=== PATIENT | male | born 1940 | race Caucasian/White ===

== ENCOUNTER 2017-12-25 17:20 | Inpatient (IN) | payer MEDICARE, OTHER ==
[~2017-12-25] VITALS: Ht 182.9 cm; Wt 84.1 kg
[2017-12-25 18:31] LABS: BASOPHILS PERCENT AUTO 0 % (0-2); EOSINOPHILS PERCENT AUTO 0 % (0-6); Hematocrit 37.6 % (37.0-53.0); Hemoglobin 12.2 g/dL (13.5-17.5); IMMATURE GRAN ABSOLUTE AUTO 0.05 K/mm3 (0.00-0.10); IMMATURE GRAN PERCENT AUTO 1 % (0-1); LYMPHOCYTES ABSOLUTE AUTO 0.61 K/mm3 (0.84-5.20); LYMPHOCYTES PERCENT AUTO 8 % (21-46); MONOCYTES PERCENT AUTO 7 % (4-13); Mean Corpuscular HGB Conc 32.4 g/dL (31.5-36.5); Mean Corpuscular Volume 90 fL (80-100); Mean Platelet Volume 9.9 fL (9.1-12.4); NEUTROPHILS ABSOLUTE AUTO 6.17 K/mm3 (1.96-9.15); NEUTROPHILS PERCENT AUTO 84 % (41-73); Platelet Count 211 K/mm3 (150-400); RDW Coefficient Variation 13.5 % (11.7-14.2); RDW Standard Deviation 44.5 fL (35.1-46.3); White Blood Cell Count 7.33 K/mm3 (4.00-11.30)
[2017-12-25 18:40] LABS: International Normalized Ratio 1.09; Prothrombin Time Results 11.4 Sec (9.7-11.5)
[2017-12-25 18:52] LABS: Alanine Aminotransfer (ALT/SGP 24 U/L (12-78); Albumin/Globulin Ratio 0.8 (0.8-1.8); Alk Phos 61 U/L (50-136); Anion Gap 7 mmol/L (6-16); Aspartate Aminotrans (AST/SGOT 25 U/L (12-37); Bilirubin, Total 0.4 mg/dL (0.1-1.0); Blood Urea Nitrogen 18 mg/dL (8-24); Bun/Creatinine Ratio 17.1 (12.0-20.0); CO2, Blood 29 mmol/L (21-32); Calcium, Blood 8.5 mg/dL (8.5-10.1); Chloride, Blood 105 mmol/L (98-108); Creatinine, Blood 1.05 mg/dL (0.60-1.20); Globulin, Blood 3.7 g/dL (2.2-4.0); Glomerular Filtration Rate >60 (60-); Glucose, Blood 114 mg/dL (70-99); Magnesium, Blood 2.2 mg/dL (1.6-2.4); Potassium, Blood 3.2 mmol/L (3.5-5.5); Sodium, Blood 141 mmol/L (136-145); Total Protein, Blood 6.7 g/dL (6.4-8.2); Troponin I 0.043 ng/mL (0.000-0.040)
[2017-12-25 19:50] LABS: Source, Urine Clean Catch
[2017-12-25 19:56] LABS: Appearance, Urine Clear (Clear); Bilirubin, Urine Neg (Neg); Blood, Urine Neg (Neg); Color, Urine Yellow (P-Yellow); Glucose Qualitative, Urine Neg (Neg); Ketones, Urine Neg (Neg); Leukocyte Esterase, Urine Neg (Neg); Nitrite, Urine Neg (Neg); Protein, Urine Neg (Neg); Urobilinogen, Urine NORM (Normal)
[2017-12-25] MEDS ORDERED: ACET325 PO (20:07)
[2017-12-25] MEDS ORDERED: Aspir 8181 MG PO (20:09)
[2017-12-25] MEDS ORDERED: ATOR10 PO (20:09)
[2017-12-25] MEDS ORDERED: CYCL10 PO (20:10)
[2017-12-25] MEDS ORDERED: BUDE6HFA INH (20:10)
[2017-12-25] MEDS ORDERED: SYNTHROID0.2 MG PO (20:11)
[2017-12-25] MEDS ORDERED: LISI20 PO (20:11)
[2017-12-25] MEDS ORDERED: CLARITIN10 MG PO (20:12)
[2017-12-25] MEDS ORDERED: Terazosin HCl10 MG PO (20:19)
[2017-12-25] MEDS ORDERED: METO50ER PO (20:20)
[2017-12-25] MEDS ORDERED: Calcium + Vita1 EACH PO (21:18)
[2017-12-26 05:54] LABS: Anion Gap 5 mmol/L (6-16); Blood Urea Nitrogen 16 mg/dL (8-24); Bun/Creatinine Ratio 17.3 (12.0-20.0); CO2, Blood 33 mmol/L (21-32); Chloride, Blood 103 mmol/L (98-108); Creatinine, Blood 0.93 mg/dL (0.60-1.20); Glomerular Filtration Rate >60 (60-); Glucose, Blood 93 mg/dL (70-99); Potassium, Blood 3.3 mmol/L (3.5-5.5); Sodium, Blood 141 mmol/L (136-145)
[2017-12-27 08:56] LABS: Albumin, Blood 2.9 g/dL (3.4-5.0); Anion Gap 7 mmol/L (6-16); Blood Urea Nitrogen 20 mg/dL (8-24); Bun/Creatinine Ratio 21.2 (12.0-20.0); CO2, Blood 32 mmol/L (21-32); Chloride, Blood 101 mmol/L (98-108); Creatinine, Blood 0.94 mg/dL (0.60-1.20); Glomerular Filtration Rate >60 (60-); Glucose, Blood 85 mg/dL (70-99); Phosphorus, Blood 3.1 mg/dL (2.5-4.9); Potassium, Blood 3.2 mmol/L (3.5-5.5); Sodium, Blood 140 mmol/L (136-145)
[2017-12-28 05:49] LABS: Anion Gap 6 mmol/L (6-16); Blood Urea Nitrogen 23 mg/dL (8-24); Bun/Creatinine Ratio 20.7 (12.0-20.0); CO2, Blood 33 mmol/L (21-32); Calcium, Blood 7.8 mg/dL (8.5-10.1); Chloride, Blood 99 mmol/L (98-108); Creatinine, Blood 1.11 mg/dL (0.60-1.20); Glomerular Filtration Rate >60 (60-); Glucose, Blood 96 mg/dL (70-99); Potassium, Blood 3.2 mmol/L (3.5-5.5); Sodium, Blood 138 mmol/L (136-145)
[2017-12-28] MEDS ORDERED: METO50 PO (11:54)
[2017-12-28] MEDS ORDERED: POTCHL20ER PO (11:54)
[2017-12-28] MEDS ORDERED: XARELTO20 MG PO (11:55)
[2017-12-28] MEDS ORDERED: TRAM50 PO (11:56)
[2017-12-28] MEDS ORDERED: TIOT18 INH (11:57)
[2017-12-29 07:39] LABS: Albumin, Blood 2.5 g/dL (3.4-5.0); Anion Gap 7 mmol/L (6-16); Blood Urea Nitrogen 30 mg/dL (8-24); Bun/Creatinine Ratio 21.9 (12.0-20.0); CO2, Blood 29 mmol/L (21-32); Calcium, Blood 7.8 mg/dL (8.5-10.1); Chloride, Blood 102 mmol/L (98-108); Creatinine, Blood 1.37 mg/dL (0.60-1.20); Glomerular Filtration Rate 53 (60-); Glucose, Blood 85 mg/dL (70-99); Phosphorus, Blood 2.9 mg/dL (2.5-4.9); Potassium, Blood 3.8 mmol/L (3.5-5.5); Sodium, Blood 138 mmol/L (136-145)
[2017-12-30 05:31] LABS: Anion Gap 5 mmol/L (6-16); Blood Urea Nitrogen 29 mg/dL (8-24); Bun/Creatinine Ratio 24.8 (12.0-20.0); CO2, Blood 30 mmol/L (21-32); Calcium, Blood 8.5 mg/dL (8.5-10.1); Chloride, Blood 105 mmol/L (98-108); Creatinine, Blood 1.17 mg/dL (0.60-1.20); Glomerular Filtration Rate >60 (60-); Glucose, Blood 97 mg/dL (70-99); Potassium, Blood 3.8 mmol/L (3.5-5.5); Sodium, Blood 140 mmol/L (136-145)
[2017-12-30] MEDS ORDERED: ASPI325 PO (15:33)
[2017-12-30] MEDS ORDERED: ALBU2.5V5 NEB (15:35)
[2017-12-30] MEDS ORDERED: FURO40 PO (15:37)
[2017-12-31 05:28] LABS: Albumin, Blood 2.6 g/dL (3.4-5.0); Anion Gap 7 mmol/L (6-16); Blood Urea Nitrogen 27 mg/dL (8-24); CO2, Blood 29 mmol/L (21-32); Calcium, Blood 8.2 mg/dL (8.5-10.1); Chloride, Blood 106 mmol/L (98-108); Creatinine, Blood 1.08 mg/dL (0.60-1.20); Glomerular Filtration Rate >60 (60-); Glucose, Blood 85 mg/dL (70-99); Potassium, Blood 4.1 mmol/L (3.5-5.5); Sodium, Blood 142 mmol/L (136-145)
[2017-12-31] MEDS ORDERED: METO50ER PO (12:46)
[2017-12-31] MEDS ORDERED: ASPI81CH PO (12:47)
== END 2017-12-31 17:53 | disposition home health service (06) | DRG 291 ==
LOC: ER 17:20 → PCU 20:18 → MEDS 12-27 15:35 → ENPENDDIS 12-30 10:00 → MEDS 12-31 17:53
PROVIDERS: Emergency Medicine; Hospitalist; Internal Medicine
DX: I11.0 Hypertensive heart disease with heart failure (principal); J96.01 Acute respiratory failure with hypoxia; N17.9 Acute kidney failure, unspecified; F03.91 Unspecified dementia, unspecified severity, with behavioral disturbance; I50.31 Acute diastolic (congestive) heart failure; Z79.01 Long term (current) use of anticoagulants; K70.10 Alcoholic hepatitis without ascites; F03.90 Unspecified dementia, unspecified severity, without behavioral disturbance, psychotic disturbance, mood disturbance, and anxiety; I48.0 Paroxysmal atrial fibrillation; J44.9 Chronic obstructive pulmonary disease, unspecified
CPT/HCPCS: 36415; 71046; 80048; 80053; 80069; 81003; 82947; 83735; 83880; 84145; 84443; 84484; 85025; 85610; 85730; 93005; 93010; 93306; 94640; 94760; 94761; 96365; 96375; 97162; 97530; 99285; G8978; G8979; G8980; J0696; J1630; J1940; J2060; J3480

== ENCOUNTER 2021-03-27 09:17 | Emergency (ER) | payer OTHER ==
[~2021-03-27] VITALS: Ht 182.9 cm; Wt 72.6 kg
[~2021-03-27 09:17] MED LIST: ACET325 PO; ALBU2.5V5 NEB; ASPI325 PO; ASPI81CH PO; ATOR10 PO; Aspir 8181 MG PO; BUDE6HFA INH; CLARITIN10 MG PO; CYCL10 PO; Calcium + Vita1 EACH PO; FURO40 PO; LISI20 PO; METO50 PO; METO50ER PO; POTCHL20ER PO; SYNTHROID0.2 MG PO; TIOT18 INH; TRAM50 PO; Terazosin HCl10 MG PO; XARELTO20 MG PO
== END 2021-03-27 14:30 | disposition home or self-care (01) ==
LOC: ER 09:17
DX: S60.222A Contusion of left hand, initial encounter (principal); Z79.899 Other long term (current) drug therapy; Z79.82 Long term (current) use of aspirin; Z87.891 Personal history of nicotine dependence; X58.XXXA Exposure to other specified factors, initial encounter
CPT/HCPCS: 73100; 99284-25

== ENCOUNTER 2021-07-11 11:59 | Emergency (ER) | payer OTHER ==
[~2021-07-11] VITALS: Ht 182.9 cm; Wt 65.8 kg
[2021-07-11] MEDS ORDERED: HYDR1TAB94 PO (14:13)
[2021-07-11] MEDS ORDERED: LIDO700A20 TOP (14:18)
[2021-07-17] MEDS ORDERED: LIDO700A20 TOP (13:10)
[2021-07-17] MEDS ORDERED: Norco 5-325 Ta1 EACH PO (13:10)
== END 2021-07-11 14:59 | disposition home or self-care (01) ==
LOC: ER 11:59
DX: S20.211A Contusion of right front wall of thorax, initial encounter (principal); J44.9 Chronic obstructive pulmonary disease, unspecified; F03.90 Unspecified dementia, unspecified severity, without behavioral disturbance, psychotic disturbance, mood disturbance, and anxiety; Z79.82 Long term (current) use of aspirin; Z79.899 Other long term (current) drug therapy; Z87.891 Personal history of nicotine dependence; W06.XXXA Fall from bed, initial encounter
CPT/HCPCS: 71101; 93005; 93010; 94640; 99284-25

== ENCOUNTER 2021-08-14 14:49 | Inpatient (IN) | payer OTHER ==
[~2021-08-14] VITALS: Ht 180.3 cm; Wt 63.5 kg
[~2021-08-14 14:49] MED LIST changes: +HYDR1TAB94 PO; +LIDO700A20 TOP; +Norco 5-325 Ta1 EACH PO
--- NOTE | 2021-08-14 21:19 | NUR ---
Recieved patient from ED to room 217. Pt A/Ox1, VSS. Belongings at bedside. Tele placed on pt per order. Mendez soon to be placed per order. 0.9 infusing per order. Bed locked, alarm on and in lowest position. WCTM.
[2021-08-14 21:26] LABS: Hematocrit 36.1 % (37.0-53.0); Hemoglobin 11.7 g/dL (13.5-17.5); Mean Corpuscular HGB 27.1 pg (26.0-34.0); Mean Corpuscular HGB Conc 32.4 g/dL (31.5-36.5); Mean Corpuscular Volume 84 fL (80-100); Mean Platelet Volume 9.8 fL (9.1-12.4); Platelet Count 216 K/mm3 (150-400); RDW Standard Deviation 52.4 fL (35.1-46.3); Red Blood Cell Count 4.32 M/mm3 (4.30-5.90); White Blood Cell Count 7.11 K/mm3 (4.00-11.30)
[2021-08-14 21:58] LABS: Source, Urine Catheter
[2021-08-14 22:01] LABS: Bilirubin, Urine Neg (Neg); Blood, Urine 3+ (Neg); Glucose Qualitative, Urine Neg (Neg); Ketones, Urine Neg (Neg); Leukocyte Esterase, Urine Neg (Neg); Nitrite, Urine Neg (Neg); Protein, Urine Neg (Neg); Specific Gravity, Urine 1.015 (1.003-1.022); Urobilinogen, Urine NORM (Normal)
[2021-08-14] MEDS ORDERED: EUTHYROX175 MCG PO (22:01)
[2021-08-14] MEDS ORDERED: ACET500 PO (22:03)
[2021-08-14] MEDS ORDERED: DICLOFENAC SOD100 GM TOP (22:05)
[2021-08-14] MEDS ORDERED: DOCU100 PO (22:05)
[2021-08-14] MEDS ORDERED: DONE10 PO (22:07)
[2021-08-14] MEDS ORDERED: DONEPEZIL HCL10 MG PO (22:07)
[2021-08-14 22:08] LABS: Alanine Aminotransfer (ALT/SGP 16 U/L (12-78); Albumin, Blood 2.8 g/dL (3.4-5.0); Albumin/Globulin Ratio 0.7 (0.8-1.8); Alk Phos 93 U/L (50-136); Anion Gap 7 mmol/L (6-16); Aspartate Aminotrans (AST/SGOT 17 U/L (12-37); Bilirubin, Total 0.5 mg/dL (0.1-1.0); Blood Urea Nitrogen 21 mg/dL (8-24); Bun/Creatinine Ratio 22.6 (12.0-20.0); CO2, Blood 32 mmol/L (21-32); Calcium, Blood 8.2 mg/dL (8.5-10.1); Chloride, Blood 101 mmol/L (98-108); Creatinine, Blood 0.93 mg/dL (0.60-1.20); Globulin, Blood 3.9 g/dL (2.2-4.0); Glomerular Filtration Rate >60 (60-); Glucose, Blood 94 mg/dL (70-99); Potassium, Blood 3.5 mmol/L (3.5-5.5); Sodium, Blood 140 mmol/L (136-145); Total Protein, Blood 6.7 g/dL (6.4-8.2)
[2021-08-14] MEDS ORDERED: TAMS.4ER PO (22:11)
[2021-08-14] MEDS ORDERED: XARELTO20 MG PO (22:15)
[2021-08-14] MEDS ORDERED: ATOR10 PO (22:16)
[2021-08-14 22:18] LABS: Appearance, Urine Clear (Clear); Color, Urine Yellow (P-Yellow)
[2021-08-14] MEDS ORDERED: SENN187 PO (22:18)
[2021-08-14] MEDS ORDERED: ZINC OXIDE57 GM TOP (22:19)
[2021-08-14 22:20] LABS: Amorphous Light (0-Heavy); Bacteria Rare /hpf; Squamous Epithelial Cells Not Seen /hpf (Few); Transitional Epithelial Cells Few /hpf (0-Rare); White Blood Cells, Urine Rare /hpf (0-5)
[2021-08-14] MEDS ORDERED: LOPERAMIDE2 M8 PO (22:23)
--- NOTE | 2021-08-14 23:16 | NUR ---
[facility] CALLED. STATES THE PATIENT HAD RECIEVED FLU VACCINE THIS YEAR. MED HELD. ALSO STATES LAST DOSE OF XARELTO WAS TODAY 08/14/21 AT 1200. WILL PASS ONTO DAY RN. DR. DAMICO MADE AWARE THAT MED REQ IS COMPLETE STATES SHE WILL ORDER ACCORDINGLY. ALSO DR. DAMICO AWARE THAT DNR PAPERWORK WAS RECIEVED FROM [facility]. STATES SHE WILL CHANGE THE CODE STATUS. TM.
--- NOTE | 2021-08-15 01:15 | NUR ---
PT BRADYCARDIC WHILE SLEEPING PER STARCH TREATING ASSISTANT. PT AWOKEN, VSS. HR NOW 61 BPM.
[2021-08-15 04:28] LABS: Hematocrit 33.7 % (37.0-53.0); Mean Corpuscular HGB 27.4 pg (26.0-34.0); Mean Corpuscular HGB Conc 32.6 g/dL (31.5-36.5); Mean Corpuscular Volume 84 fL (80-100); Mean Platelet Volume 9.8 fL (9.1-12.4); Platelet Count 214 K/mm3 (150-400); RDW Coefficient Variation 16.9 % (11.7-14.2); RDW Standard Deviation 52.1 fL (35.1-46.3); Red Blood Cell Count 4.02 M/mm3 (4.30-5.90); White Blood Cell Count 6.75 K/mm3 (4.00-11.30)
[2021-08-15 05:40] LABS: Anion Gap 8 mmol/L (6-16); Blood Urea Nitrogen 18 mg/dL (8-24); Bun/Creatinine Ratio 20.2 (12.0-20.0); CO2, Blood 30 mmol/L (21-32); Chloride, Blood 102 mmol/L (98-108); Creatinine, Blood 0.89 mg/dL (0.60-1.20); Glomerular Filtration Rate >60 (60-); Glucose, Blood 88 mg/dL (70-99); Potassium, Blood 3.3 mmol/L (3.5-5.5); Sodium, Blood 140 mmol/L (136-145)
[2021-08-15 08:41] LABS: Influenza A, PCR NEGATIVE (NEGATIVE); Influenza B, PCR NEGATIVE (NEGATIVE); Resp Syncytial Virus, PCR NEGATIVE (NEGATIVE); SARS-Cov-2 (COVID-19) PCR, MMC NEGATIVE (NEGATIVE)
--- NOTE | 2021-08-15 13:29 | NUR ---
08/15/21 1329 Savana Teixeira ANCEF 2 GM IV GIVEN BY DR RUIZ AT 1310. DR RUIZ PULLED THE MEDS FROM HIS PYXIS, MIXED IT, AND ADMINISTERED IT.
--- NOTE | 2021-08-15 14:43 | NUR ---
COPY OF PATIENTS GUARDIANSHIIP IN CHART
--- NOTE | 2021-08-15 16:11 | NUR ---
SHIFT SUMMARY S/P R HIP REPAIR. PT AWAKENS TO VERBAL STIMIULI BUT BECOMES VERY AGRESSIVE WITH MALE CAREGIVERS. AND REFUSES CARE. LOGAN PATENT AND DRAINING. DRESSINGS CDI. AQUACELS CDI TO R HIP. PT REPORTS SENSATION IN RLE BY TELLING THIS RN TO KNOCK IT OFF AND QUIT TOUCHING HIS FOOT.
--- NOTE | 2021-08-16 05:05 | NUR ---
SHIFT SUMMARY POD1 R HIP GAMMA NAIL W/ DR. ANDRADE. PT ALERT, ORIENTED TO SELF ONLY. HX DEMENTIA. ATTEMPTED TO REPOSITIONED PT EVERY 2 HOURS, BUT HAS BEEN REFUSING. HE GETS AGITATED AND YELLS STATING "DON'T TOUCH ME!" WHEN NOT REPOSITIONED HE CAN BE PLEASANT AND CALM. SLEPT AT THE BEGINNING OF THE SHIFT, FED PT WITH SNACKS AND ENC ORAL HYDRATION AT 2200. IV ABX GIVEN. PAIN MANAGED WITH NORCO. BP MILDLY HYPOTENSIVE. ENC ORAL FLUIDS. PT LIKED LEMONADE. BED IN LOW POSITION. CALL LIGHT WITHIN REACH. WILL CONTINUE TO MONITOR PT. AND WILL PROVIDE REPORT TO ONCOMING NURSE.
[2021-08-16 06:14] LABS: BASOPHILS ABSOLUTE AUTO 0.01 K/mm3 (0.00-0.23); BASOPHILS PERCENT AUTO 0 % (0-2); EOSINOPHILS PERCENT AUTO 0 % (0-6); Hematocrit 33.7 % (37.0-53.0); Hemoglobin 10.6 g/dL (13.5-17.5); IMMATURE GRAN ABSOLUTE AUTO 0.02 K/mm3 (0.00-0.10); IMMATURE GRAN PERCENT AUTO 0 % (0-1); LYMPHOCYTES PERCENT AUTO 12 % (21-46); MONOCYTES ABSOLUTE AUTO 0.65 K/mm3 (0.16-1.47); MONOCYTES PERCENT AUTO 10 % (4-13); Mean Corpuscular HGB 26.8 pg (26.0-34.0); Mean Corpuscular HGB Conc 31.5 g/dL (31.5-36.5); Mean Corpuscular Volume 85 fL (80-100); Mean Platelet Volume 10.3 fL (9.1-12.4); NEUTROPHILS ABSOLUTE AUTO 4.99 K/mm3 (1.96-9.15); NEUTROPHILS PERCENT AUTO 77 % (41-73); Platelet Count 249 K/mm3 (150-400); RDW Standard Deviation 53.2 fL (35.1-46.3); Red Blood Cell Count 3.95 M/mm3 (4.30-5.90); White Blood Cell Count 6.47 K/mm3 (4.00-11.30)
[2021-08-16 06:52] LABS: Alanine Aminotransfer (ALT/SGP 14 U/L (12-78); Albumin, Blood 2.3 g/dL (3.4-5.0); Albumin/Globulin Ratio 0.5 (0.8-1.8); Alk Phos 79 U/L (50-136); Anion Gap 9 mmol/L (6-16); Aspartate Aminotrans (AST/SGOT 13 U/L (12-37); Bilirubin, Total 0.3 mg/dL (0.1-1.0); Blood Urea Nitrogen 20 mg/dL (8-24); CO2, Blood 27 mmol/L (21-32); Calcium, Blood 7.9 mg/dL (8.5-10.1); Chloride, Blood 102 mmol/L (98-108); Creatinine, Blood 1.05 mg/dL (0.60-1.20); Globulin, Blood 4.4 g/dL (2.2-4.0); Glomerular Filtration Rate >60 (60-); Glucose, Blood 110 mg/dL (70-99); Potassium, Blood 3.8 mmol/L (3.5-5.5); Sodium, Blood 138 mmol/L (136-145); Total Protein, Blood 6.7 g/dL (6.4-8.2)
--- NOTE | 2021-08-16 18:29 | NUR ---
SHIFT SUMMARY PT HAS NOT BEEN ABLE TO TOLERATE ANY MOVEMENT TODAY. FEARFUL & PAINFUL, BUT REFUSES PAIN MEDICATION THIS AFTERNOON. ONLY ORIENTED TO SELF, BUT PLEASANT. VERY ONE[place]. EATING & DRINKING WELL.
--- NOTE | 2021-08-17 04:31 | NUR ---
SHIFT SUMMARY PT ALERT BUT ONLY ORIENTED TO SELF, INTERMITTENTLY REFUSES CARE, C/O SORENESS TO R KNEE BUT REFUSES PAIN MEDS, WAS WILLING TO ACCEPT PLACING ICE PACKS TO IT, REFUSED TO LET THIS RN INSPECT DRESSINGS BUT PER REPORTS HE ALSO REFUSED SOME CARE DURING DAY SHIFT. NO ACUTE EVENTS THIS SHIFT, CALL LIGHT IN REACH THOUGH HE USUALLY JUST CALLS OUT/YELLS OUT, WILL CTM AND REPORT TO DAY RN.
--- NOTE | 2021-08-17 16:47 | NUR ---
SHIFT SUMMARY PT IS POD# 2 FROM R HIP REPAIR. PT IS ORIENTED TO HIMSELF. PAIN WAS MANAGED WITH TYLENOL THIS AM. PAIN APPEARED TO INCREASE THIS AFTERNOON AND 6 HOURS HAD NOT PASSED SINCE FIRST DOSE. PT WAS GIVEN NORCO, PT HAS BEEN SLEEPING SINCE NORCO WAS GIVEN. RECOMMEND AVOIDING/REDUCING NARCOTICS FOR FUTURE DOSES. PT WAS A 2 PERSON ASSIST TO GET TO THE CHAIR. HE HAS DIFFICULTY MAINTAINING WEIGHTBEARING STATUS. PT IS TOLERATING HIS DIET AND HAS ATE 90-100% OF MEALS. PLAN FOR RETURN TO [facility] WHEN PT IS BETTER ABLE TO MOBILIZE. BP SLIGHTLY LOW THIS AFTERNOON BUT HAS IMPROVED. VSS AT THIS TIME. WILL MONITOR UNTIL REPORT TO ANGELES RN.
--- NOTE | 2021-08-17 16:52 | NUR ---
Received referral from nurse family day care worker (Samina Morgan) on 08/16/2021. Patient is to discharge on either 08/17/2021 or 08/18/2021 with orders for home health and elected [facility]. Attempted to meet with patient today- 08/18/2021 to further discuss the above. However, per bedside BEHAVIORAL MEDICAL DIRECTOR (Eboni Ta), patient is not able to meaningfully participate in the conversation due to his mental status and being hard of hearing. Contacted patient's facility- [facility] (Med Tech- Trisha?) to further discuss the above. Patient's facility is agreeable to the above. Discussed homebound status definition with facility med tech. Facility med tech verbalized understanding. Discussed what home health is vs what it is not (in home caregivers/housekeeping). Facility med tech verbalized understanding. Discussed the next steps in the process of an initial assessment to determine frequency of visits. Again facility med tech verbalized understanding. Offered a chance for facility med tech to ask questions regarding the above of which there were none. At this time patient has no discharge orders entered. Will continue to monitor and follow for discharge. Greer Upton Referral Liaison
--- NOTE | 2021-08-18 08:03 | NUR ---
SUMMARY PER REPORT,PT IS TO BE 1 ASSIST OOB BEFORE HE CAN RETURN TO HIS PRIOR LIVING SITUATION.ORDERED FOR [facility]B RLE AT THIS TIME.
[2021-08-18] MEDS ORDERED: VITAMIN D31000 UNI1 PO (13:43)
--- NOTE | 2021-08-18 16:21 | NUR ---
SHIFT SUMMARY PT POD #3 FOR R HIP GAMMA NAILING. PT IS A/O X1/2 AND CAN BE IRRITABLE AT TIMES. PT DOES NOT C/O PAIN AND IT IS WELL CONTROLLED WITH TYLENOL THIS SHIFT. AQUACEL DRESSING TO R HIP, DRESSING CHANGED THIS SHIFT AND CDI. PT WORKED WITH PHYSICAL THERAPY AND WAS ABLE TO GET UP WITH A ONE ASSIST. PT DOES WELL NOT PUTTING WEIGHT ON R LEG. VSS. REPORT CALLED TO [facility]. PT [facility].
== END 2021-08-18 15:55 | disposition home health service (06) | DRG 481 ==
LOC: ER 14:49 → SURS 18:19
PROVIDERS: Internal Medicine; Orthopaedic Surgery; ADMIT Internal Medicine
PROC: 0QS636Z Reposition Right Upper Femur with Intramedullary Internal Fixation Device, Percutaneous Approach (ICD-10-PCS; principal; 2021-08-15 12:30)
DX: S72.144A Nondisplaced intertrochanteric fracture of right femur, initial encounter for closed fracture (principal); F03.91 Unspecified dementia, unspecified severity, with behavioral disturbance; I50.32 Chronic diastolic (congestive) heart failure; S72.044A Nondisplaced fracture of base of neck of right femur, initial encounter for closed fracture; Z20.822 Contact with and (suspected) exposure to COVID-19; Z66 Do not resuscitate; E11.9 Type 2 diabetes mellitus without complications; I48.0 Paroxysmal atrial fibrillation; E86.0 Dehydration; F17.200 Nicotine dependence, unspecified, uncomplicated; E03.9 Hypothyroidism, unspecified; E78.5 Hyperlipidemia, unspecified; J44.9 Chronic obstructive pulmonary disease, unspecified; H90.5 Unspecified sensorineural hearing loss; Z86.711 Personal history of pulmonary embolism; Z98.890 Other specified postprocedural states; Z79.01 Long term (current) use of anticoagulants; Z79.82 Long term (current) use of aspirin; Z79.899 Other long term (current) drug therapy; W18.39XA Other fall on same level, initial encounter
CPT/HCPCS: 0241U; 36415; 71045; 72192; 73502; 73552; 76377; 80048; 80053; 81001; 82607; 82746; 82947; 84443; 85025; 85027; 86592; 93005; 93010; 94760; 96374; 97110; 97162; 97166; 97530; 99285-25; A9270; C1713; J0690; J1100; J1630; J2370; J2405; J2704; J3010; J3480; J7030; J7040

== ENCOUNTER 2022-01-15 10:06 | Emergency (ER) | payer OTHER ==
[~2022-01-15] VITALS: Ht 180.3 cm; Wt 72.6 kg
[~2022-01-15 10:06] MED LIST changes: +ACET500 PO; +DICLOFENAC SOD100 GM TOP; +DOCU100 PO; +DONE10 PO; +DONEPEZIL HCL10 MG PO; +EUTHYROX175 MCG PO; +LOPERAMIDE2 M8 PO; +SENN187 PO; +TAMS.4ER PO; +VITAMIN D31000 UNI1 PO; +ZINC OXIDE57 GM TOP
[2022-01-15 10:55] LABS: BASOPHILS ABSOLUTE AUTO 0.02 K/mm3 (0.00-0.23); BASOPHILS PERCENT AUTO 0 % (0-2); EOSINOPHILS PERCENT AUTO 0 % (0-6); Hematocrit 34.1 % (37.0-53.0); Hemoglobin 10.4 g/dL (13.5-17.5); IMMATURE GRAN ABSOLUTE AUTO 0.02 K/mm3 (0.00-0.10); IMMATURE GRAN PERCENT AUTO 0 % (0-1); LYMPHOCYTES ABSOLUTE AUTO 1.45 K/mm3 (0.84-5.20); LYMPHOCYTES PERCENT AUTO 22 % (21-46); MONOCYTES ABSOLUTE AUTO 0.66 K/mm3 (0.16-1.47); MONOCYTES PERCENT AUTO 10 % (4-13); Mean Corpuscular HGB 23.9 pg (26.0-34.0); Mean Corpuscular HGB Conc 30.5 g/dL (31.5-36.5); Mean Corpuscular Volume 78 fL (80-100); NEUTROPHILS ABSOLUTE AUTO 4.56 K/mm3 (1.96-9.15); NEUTROPHILS PERCENT AUTO 68 % (41-73); Platelet Count 228 K/mm3 (150-400); RDW Coefficient Variation 17.3 % (11.7-14.2); RDW Standard Deviation 49.3 fL (35.1-46.3); Red Blood Cell Count 4.35 M/mm3 (4.30-5.90); White Blood Cell Count 6.71 K/mm3 (4.00-11.30)
[2022-01-15 11:02] LABS: Albumin/Globulin Ratio 0.7 (0.8-1.8); Bilirubin, Total 0.1 mg/dL (0.1-1.0); Bun/Creatinine Ratio 35.1 (12.0-20.0); Calcium, Blood 8.4 mg/dL (8.5-10.1); Creatinine, Blood 0.91 mg/dL (0.60-1.20); Globulin, Blood 4.6 g/dL (2.2-4.0); Total Protein, Blood 7.6 g/dL (6.4-8.2)
[2022-01-15 11:56] LABS: Influenza B, PCR NEGATIVE (NEGATIVE); Resp Syncytial Virus, PCR NEGATIVE (NEGATIVE); SARS-Cov-2 (COVID-19) PCR, MMC NEGATIVE (NEGATIVE)
[2022-01-15 13:00] LABS: Influenza A, PCR POSITIVE (NEGATIVE)
== END 2022-01-15 16:33 | disposition home or self-care (01) ==
LOC: ER 10:06
PROVIDERS: Emergency Medicine
DX: J11.1 Influenza due to unidentified influenza virus with other respiratory manifestations (principal); F03.90 Unspecified dementia, unspecified severity, without behavioral disturbance, psychotic disturbance, mood disturbance, and anxiety; J44.9 Chronic obstructive pulmonary disease, unspecified; Z66 Do not resuscitate; Z79.899 Other long term (current) drug therapy; Z20.822 Contact with and (suspected) exposure to COVID-19
CPT/HCPCS: 0241U; 31720; 71045; 80053; 83880; 84484; 85025

== ENCOUNTER 2022-02-14 09:46 | Inpatient (IN) | payer OTHER ==
[~2022-02-14] VITALS: Ht 182.9 cm; Wt 74.9 kg
[2022-02-14 10:30] LABS: BASOPHILS ABSOLUTE AUTO 0.01 K/mm3 (0.00-0.23); BASOPHILS PERCENT AUTO 0 % (0-2); EOSINOPHILS PERCENT AUTO 0 % (0-6); Hematocrit 34.4 % (37.0-53.0); Hemoglobin 10.4 g/dL (13.5-17.5); IMMATURE GRAN ABSOLUTE AUTO 0.01 K/mm3 (0.00-0.10); IMMATURE GRAN PERCENT AUTO 0 % (0-1); LYMPHOCYTES ABSOLUTE AUTO 0.62 K/mm3 (0.84-5.20); LYMPHOCYTES PERCENT AUTO 13 % (21-46); MONOCYTES ABSOLUTE AUTO 0.34 K/mm3 (0.16-1.47); MONOCYTES PERCENT AUTO 7 % (4-13); Mean Corpuscular HGB 23.9 pg (26.0-34.0); Mean Corpuscular HGB Conc 30.2 g/dL (31.5-36.5); Mean Corpuscular Volume 79 fL (80-100); Mean Platelet Volume 9.6 fL (9.1-12.4); NEUTROPHILS ABSOLUTE AUTO 3.74 K/mm3 (1.96-9.15); NEUTROPHILS PERCENT AUTO 79 % (41-73); Platelet Count 203 K/mm3 (150-400); RDW Coefficient Variation 20.2 % (11.7-14.2); RDW Standard Deviation 56.9 fL (35.1-46.3); Red Blood Cell Count 4.35 M/mm3 (4.30-5.90); White Blood Cell Count 4.72 K/mm3 (4.00-11.30)
[2022-02-14] MEDS ORDERED: FURO40 PO (10:38)
[2022-02-14] MEDS ORDERED: POTCHL20ER PO (10:39)
[2022-02-14 10:53] LABS: Alanine Aminotransfer (ALT/SGP 20 U/L (12-78); Albumin, Blood 2.7 g/dL (3.4-5.0); Albumin/Globulin Ratio 0.5 (0.8-1.8); Alk Phos 90 U/L (50-136); Anion Gap 2 mmol/L (6-16); Aspartate Aminotrans (AST/SGOT 34 U/L (12-37); Bilirubin, Total <0.1 mg/dL (0.1-1.0); Blood Urea Nitrogen 20 mg/dL (8-24); Bun/Creatinine Ratio 29.9 (12.0-20.0); CO2, Blood 33 mmol/L (21-32); Calcium, Blood 8.3 mg/dL (8.5-10.1); Chloride, Blood 100 mmol/L (98-108); Creatinine, Blood 0.67 mg/dL (0.60-1.20); Glomerular Filtration Rate 93 (60-); Glucose, Blood 107 mg/dL (70-99); Potassium, Blood 4.9 mmol/L (3.5-5.5); Sodium, Blood 135 mmol/L (136-145); Total Protein, Blood 7.7 g/dL (6.4-8.2)
[2022-02-14 11:14] LABS: Influenza A, PCR NEGATIVE (NEGATIVE); Influenza B, PCR NEGATIVE (NEGATIVE); Resp Syncytial Virus, PCR NEGATIVE (NEGATIVE); SARS-Cov-2 (COVID-19) PCR, MMC NEGATIVE (NEGATIVE)
--- NOTE | 2022-02-14 18:03 | NUR ---
PT ARRIVED IN THE UNIT FROM [facility] APPROX 1600 PT TRANSFER TO BED VIA SLIDER SHEET, PT ON BIPAP MASK UPON ARRIVAL SETTINGS PEEP 8 30% FIO2, SATS ABOVE 90% PT HAS AUDIBLE CRACKLES, BLE 2+ PITTING EDEMA, WAS GIVEN DOSE OF LASIX IN THE ER. PT MOANS, NON VERBAL PER ER NURSE, SLIGHTLY COMBATIVE WHEN MOVE OR TOUCHED PULLS ON LINES AND TUBINGS. PT INCONTINENT ATTENDS IN PLACE. PT WAS HAVING EPISODES OF BRADYCARDIA 40-50'S, EKG DONE PER ORDER, TROPONIN TRENDING UP AND SO LACTIC ACID, PROVIDER MADE AWARE, NO CURRENT ORDERS AT THIS TIME. PT NOW RESTING IN BED, CALL LIGHTS IN REACH BED ALARM ON FOR SAFETY, WILL REPORT TO ONCOMING SHIFT
[2022-02-15 03:32] LABS: BASOPHILS PERCENT AUTO 0 % (0-2); EOSINOPHILS PERCENT AUTO 0 % (0-6); Hematocrit 28.9 % (37.0-53.0); Hemoglobin 8.9 g/dL (13.5-17.5); IMMATURE GRAN ABSOLUTE AUTO 0.01 K/mm3 (0.00-0.10); IMMATURE GRAN PERCENT AUTO 1 % (0-1); LYMPHOCYTES PERCENT AUTO 33 % (21-46); MONOCYTES ABSOLUTE AUTO 0.06 K/mm3 (0.16-1.47); MONOCYTES PERCENT AUTO 3 % (4-13); Mean Corpuscular HGB 23.8 pg (26.0-34.0); Mean Corpuscular HGB Conc 30.8 g/dL (31.5-36.5); Mean Corpuscular Volume 77 fL (80-100); NEUTROPHILS ABSOLUTE AUTO 1.13 K/mm3 (1.96-9.15); NEUTROPHILS PERCENT AUTO 63 % (41-73); Platelet Count 218 K/mm3 (150-400); RDW Coefficient Variation 19.5 % (11.7-14.2); Red Blood Cell Count 3.74 M/mm3 (4.30-5.90)
[2022-02-15 03:51] LABS: Albumin, Blood 2.5 g/dL (3.4-5.0); Albumin/Globulin Ratio 0.6 (0.8-1.8); Bilirubin, Total 0.3 mg/dL (0.1-1.0); Bun/Creatinine Ratio 22.8 (12.0-20.0); Calcium, Blood 8.1 mg/dL (8.5-10.1); Creatinine, Blood 0.79 mg/dL (0.60-1.20); Globulin, Blood 4.3 g/dL (2.2-4.0); Potassium, Blood 4.3 mmol/L (3.5-5.5); Total Protein, Blood 6.8 g/dL (6.4-8.2)
--- NOTE | 2022-02-15 10:55 | NUR ---
PT REFUSED PO MEDICATIONS THIS AM DUE TO ADVANCED DEMENTIA PT GETS AGITATED WHEN TOUCHED OR APPROACHED WANTS TO BE LEFT ALONE, WAS PULLING ON LINES AND TUBINGS SWINGING ARMS WITH FIST READY TO HIT SAYING "COMMON TRY ME! IF YOU WOTN LEAVE ME ALONE". PT IS CALM AND RESTING IF NOT DISTURBED, [facility] CALLED FOR HISTORY AND BASELINE INFO, UPDATE WAS GIVEN WELL. PT NOW ON 4L OF O2 VIA NASAL CANNULA TOLERATING WELL, BREATHING IS MUCH IMPROVE FROM YESTERDAY, BIPAP ON STANDBY. CONDOM CATH IN PLACE DUE TO INCONTINENCE AND SKIN IRRITATION ON GROIN SITE. PT ATE BREAKFAST THIS MORNING WITH NO ISSUES. PT NOW SLEEPING, CALL LIGHTS IN REACH WILL MONITOR
--- NOTE | 2022-02-15 12:12 | NUR ---
Pt resting in bed and is confused. Pt A&OX1. Pt does not answer questions but appears comfortable. Primary RN Katherin at bedside offering medication. Pt appears to be improving and is on 4 LO2 via NC. Ended visit to allow Pt to rest. Pt has POLST on file completed by public guardian in 2019 with Pt's wishes as DNR with Limited Interventions. Palliative Care will remain available.
--- NOTE | 2022-02-15 18:22 | NUR ---
PT SUMMARY: SEE AM NOTE. STAYED IN BED MOST OF THE SHIFT REPOSITIONED FOR COMFORT. PT CONFUSED STILL GETS AGITATED WHEN BOTHERED, CUSSES WHEN IRRITATED. ECHO DONE TODAY AWAITING FOR RESULT. HRR STABLE AT 50-70'S, SR, BP SYSTOLIC 110'S, SATS ABOVE 98% ON 2L OF O2, BREATHING TX PER RT, STILL HAS AUDIBLE CRACKLES, LOOSE MOIST SPUTUM. PT ABLE TO TOLERATE PO INTAKE WITH DENTURES ON CAN FEED HIMSELF. PT CONTINUE TO DIURESE HAD 1000MLS OUTPUT FOR THE SHIFT, CONTINUES ON IV ABO. NO OTHER ISSUES REPORTED. CALL LIGHTS IN REACH WILL REPORT TO ONCOMING SHIFT
[2022-02-16 03:41] LABS: BASOPHILS PERCENT AUTO 0 % (0-2); EOSINOPHILS PERCENT AUTO 0 % (0-6); Hematocrit 31.9 % (37.0-53.0); Hemoglobin 9.7 g/dL (13.5-17.5); IMMATURE GRAN ABSOLUTE AUTO 0.01 K/mm3 (0.00-0.10); IMMATURE GRAN PERCENT AUTO 0 % (0-1); LYMPHOCYTES PERCENT AUTO 18 % (21-46); MONOCYTES ABSOLUTE AUTO 0.11 K/mm3 (0.16-1.47); MONOCYTES PERCENT AUTO 3 % (4-13); Mean Corpuscular HGB 23.8 pg (26.0-34.0); Mean Corpuscular HGB Conc 30.4 g/dL (31.5-36.5); Mean Corpuscular Volume 78 fL (80-100); Mean Platelet Volume 9.6 fL (9.1-12.4); NEUTROPHILS ABSOLUTE AUTO 3.18 K/mm3 (1.96-9.15); NEUTROPHILS PERCENT AUTO 79 % (41-73); NRBC ABSOLUTE 0.03 K/mm3 (0.00-0.02); NRBC Auto 0.8 /100 WBC (0.0-0.2); Platelet Count 232 K/mm3 (150-400); RDW Coefficient Variation 19.7 % (11.7-14.2); RDW Standard Deviation 54.2 fL (35.1-46.3); Red Blood Cell Count 4.08 M/mm3 (4.30-5.90)
--- NOTE | 2022-02-16 05:47 | NUR ---
MR. RUCKER WAS MUCH MORE ALERT AND CONVERSANT OVERNIGHT TONIGHT COMPARED TO LAST NIGHT. HE IS VERY HARD OF HEARING, APPEARS TO BE WORSE ON THE LEFT VERSUS THE RIGHT EAR. HE GETS ANGRY AND CUSSES, MAKES THREATS WHEN HE DOESN'T KNOW WHAT YOU ARE DOING OR DOESN'T UNDERSTAND WHAT'S GOING ON. OTHERWISE, ON THE OCCASIONS WHEN HE WAS ABLE TO HEAR AND TO UNDERSTAND WHAT I WAS SAYING TO HIM, HE WAS COOPERATIVE WITH CARE. TURNING HIM AND DOING GERMAINE CARE WAS MUCH EASIER HE DID NOT RESIST ROLLING IN BED WITH ASSISTANCE FROM STAFF. REGARDING MEDICATION ADMINISTRATION, MR. RUCKER WAS AGREEABLE TO TAKING HIS MEDICATIONS CRUSHED UP IN APPLESAUCE. IN ADDITION TO HIS SCHEDULED 2100 ORAL MEDICATIONS, I WAS ABLE TO ADMINISTER SOME OF HIS MEDICATIONS SCHEDULED FOR EARLIER IN THE DAY, SPECIFICALLY ARICEPT, XARELTO AND LEVOTHYROXINE. MR. RUCKER CONTINUES TO MAINTAIN HIS OXYGEN SATURATION LEVELS BETWEEN 96 AND 100% ON 2 LPM NASAL CANNULA WHILE AWAKE AND ON BIPAP AT 16/8 30% FiO2 OVERNIGHT.
[2022-02-16 06:46] LABS: Albumin, Blood 2.7 g/dL (3.4-5.0); Albumin/Globulin Ratio 0.6 (0.8-1.8); Bilirubin, Total 0.2 mg/dL (0.1-1.0); Bun/Creatinine Ratio 33.9 (12.0-20.0); Calcium, Blood 8.6 mg/dL (8.5-10.1); Creatinine, Blood 0.86 mg/dL (0.60-1.20); Globulin, Blood 4.7 g/dL (2.2-4.0); Potassium, Blood 4.1 mmol/L (3.5-5.5); Total Protein, Blood 7.4 g/dL (6.4-8.2)
--- NOTE | 2022-02-16 16:25 | NUR ---
SUMMARY: PT IS MED STATUS, NO TELE, VSS. ALERT AND CONFUSED, BASELINE DEMENTIA AND VERY [place]. PT CONTINUES TO BE AGGITATED WHEN CANNOT UNDERSTAND WHAT IS GOING ON. HELPS TO SPEAK LOUDLY IN R EAR AND EXPLAIN CARE. PT TURNED Q2, HAS WEAKNESS, SKIN INTACT, CONDOM CATH DRAINING. TELE DC'D TODAY. PT CONTINUES ON 2L VIA NC WITH 90-98% SP02. LUNGS ARE COURSE, PRODUCTIVE COUGH, RECEIVING SCEDULED BREATHING TX. PT SAW SPEECH THERAPY TODAY, SEE NEW ORDERS. NO ACUTE CONCERNS TONIGHT. BED ALARM ON FOR SAFETY, WILL CTM AND REPORT TO NOC RN.
--- NOTE | 2022-02-17 06:28 | NUR ---
NO ACUTE EVENTS OVERNIGHT. MR. RUCKER WAS ALERT AND QUITE TALKATIVE THIS EVENING, VERY PLEASANT AND COOPERATIVE WITH ALL PATIENT CARE. HIS OXYGEN SATURATION LEVELS HAVE BEEN MAINTAINED AT GREATER THAN 92% WITH SUPPLEMENTAL OXYGEN OF 1 LPM NASAL CANNULA WHILE AWAKE AND ON BIPAP 16/8 AT 30% FiO2 WHILE SLEEPING. WITH SLEEP, MR. RUCKER DOES HAVE ORTHOPNEA AND HIS WORK OF BREATHING INCREASES IF NOT ON THE BIPAP. HIS DISCOMFORT IS RELIEVED WITHIN MINUTES ONCE HE TRANSITIONS FROM THE NASAL CANNULA TO THE BIPAP. NO INCONTINENT EPISODES OVERNIGHT. CONDOMA CATHETER IS IN PLACE.
--- NOTE | 2022-02-17 07:25 | NUR ---
ASSESSMENT: PT SLEEPING WITHOUT SIGNS OR SYMPTOMS OF DISTRESS. BIPAP IN PLACE. VSS. BED ALARM ON FOR SAFETY. CALL LIGHT IN REACH. WILL ALLOW REST AND FULLY ASSESS WHEN PT ALERT AND AWAKE.
--- NOTE | 2022-02-17 17:03 | NUR ---
PT HAS BEEN STABLE THIS SHIFT. PT FLUCTUATES BETWEEN RA AND WEARING 1L O2 NEEDED. PT TO NOT USE BIPAP AT NIGHT PER DOCTOR UNLESS PT IN RESP DISTRESS. PT CONFUSED AT BASELINE. IRRITABLE WITH CARE AT TIMES. PT [place]. BED ALARM ON FOR SAFETY. LS COARSE AT TIMES IN UPPER LOBES, CLEARS WITH COUGH. AUDIBLE EXP WHEEZES T/O. PT SUPERVISED FEEDER, EATING WELL. TAKES PILLS IN APPLEASUCE CRUSHED. CONDOM CATH IN PLACE AND DRAINING WELL. ATTENDS FOR BOWEL INCONTINENCE. NO BM THIS SHIFT. TURNING Q 2HR. MED, NO TELE STATUS. AM LABS TO BE REPEATED.
--- NOTE | 2022-02-17 22:40 | NUR ---
MR. RUCKER WAS TRANSFERRED BY BED TO THE MEDICAL UNIT ROOM #354 WITH THE ASSISTANCE OF 2 STAFF MEMBERS. PT IS IN STABLE CONDITION. NURSE TO NURSE REPORT AND HAND-OFF TO STEPHANIE WHITE.
[2022-02-18 05:46] LABS: BASOPHILS PERCENT AUTO 0 % (0-2); EOSINOPHILS PERCENT AUTO 0 % (0-6); Hematocrit 30.7 % (37.0-53.0); Hemoglobin 9.3 g/dL (13.5-17.5); IMMATURE GRAN ABSOLUTE AUTO 0.02 K/mm3 (0.00-0.10); IMMATURE GRAN PERCENT AUTO 0 % (0-1); LYMPHOCYTES ABSOLUTE AUTO 1.16 K/mm3 (0.84-5.20); LYMPHOCYTES PERCENT AUTO 23 % (21-46); MONOCYTES ABSOLUTE AUTO 0.48 K/mm3 (0.16-1.47); MONOCYTES PERCENT AUTO 10 % (4-13); Mean Corpuscular HGB 23.3 pg (26.0-34.0); Mean Corpuscular HGB Conc 30.3 g/dL (31.5-36.5); Mean Corpuscular Volume 77 fL (80-100); Mean Platelet Volume 9.4 fL (9.1-12.4); NEUTROPHILS ABSOLUTE AUTO 3.32 K/mm3 (1.96-9.15); NEUTROPHILS PERCENT AUTO 67 % (41-73); NRBC ABSOLUTE 0.03 K/mm3 (0.00-0.02); NRBC Auto 0.6 /100 WBC (0.0-0.2); Platelet Count 248 K/mm3 (150-400); RDW Coefficient Variation 18.9 % (11.7-14.2); RDW Standard Deviation 52.2 fL (35.1-46.3); White Blood Cell Count 4.98 K/mm3 (4.00-11.30)
[2022-02-18 06:02] LABS: Bun/Creatinine Ratio 32.7 (12.0-20.0); Calcium, Blood 7.8 mg/dL (8.5-10.1); Creatinine, Blood 0.83 mg/dL (0.60-1.20); Potassium, Blood 3.6 mmol/L (3.5-5.5)
--- NOTE | 2022-02-18 07:29 | NUR ---
BILINGUAL ADMINISTRATIVE ASSISTANT SUMMARY. MR RUCKER SLEPT QUIETLY FOR THE REMAINDER OF THE SHIFT AFTER TRANSFER TO ROOM 354 FROM PCU. NO VISIBLE SIGNS OF PAIN OR DISCOMFORT. CONDOM CATH HAD NOT DRAINED SINCE BEING EMPTIED AT 2230. AT 0600, PATIENT WAS BLADDER SCANNED AND WAS FOUND TO HAVE >480. HOWEVER, WITHIN MINUTES OF THE SCAN, PATIENT BEGAN DRAINING CLEAR YELLOW URINE. ONCOMING RN NOTIFIED OF SCAN RESULTS.
[2022-02-18 12:18] LABS: Base Excess Venous 16.2 mmol/L; Bicarbonate Venous 36.9 mmol/L (24.0-30.0); PCO2 Venous 69.1 mmHg (38-42); PO2 Venous 34.8 mmHg (38-42); pH Blood Venous 7.39 (7.34-7.37)
--- NOTE | 2022-02-18 18:21 | NUR ---
SHIFT SUMMARY: NO ACUTE EVENTS. DENIED PAIN. IRRITABLE, SWEARS A LOT, DOESN'T LIKE BEING MESSED WITH. ON O2 @ 1 L/MIN NC WITH O2 SATS 85-94%. HR VARIABLE 49-88. TOLERATING MECH SOFT DIET, FEEDS HIMSELF. CONDOM CATH DRAINING ADEQUATE URINE.
--- NOTE | 2022-02-19 05:23 | NUR ---
END OF SHIFT NOTE PT SLEPT ALL NIGHT, NO ACUTE CHANGES. VSS, PT VOIDED THROUGH THE NIGHT.
[2022-02-19 08:54] LABS: Calcium, Blood 7.8 mg/dL (8.5-10.1); Creatinine, Blood 0.72 mg/dL (0.60-1.20); Potassium, Blood 3.9 mmol/L (3.5-5.5)
--- NOTE | 2022-02-19 14:12 | NUR ---
SPOKE TO ROSE AT [facility]. NOTIFIED THAT PT WOULD BE RETURNING TODAY AND GAVE REPORT.
[2022-02-19] MEDS ORDERED: PRED20 PO (15:08)
[2022-02-19] MEDS ORDERED: PROAIR DIGIHAL90 MCG INH (15:16)
--- NOTE | 2022-02-19 17:37 | NUR ---
SUMMARY PT HAS ADVANCED DEMENTIA. GETS IRRITABLE/ANGRY WITH STAFF DURING CARE. PT HAD 02 EVAL THAT SHOWED PT SATS 94% ON RA. ONCE PT FELL ASLEEPT, FOUND TO HAVE SATS 85-87% ON RA. PLACED ON 2L AND SATS IMPROVED TO 93%. PLAN TO DC TO [facility] THIS AFTERNOON POSTPONED SO MAY OBTAIN ORDERS FOR O2 AND HAVE DELIVERED. PT HAD SMEAR OF STOOL IN ATTENDS. ADMINISTERED SUPPOSITORY TO FACILITATE BM PER ORDERS. PT RESTING W/EYES CLOSED.
--- NOTE | 2022-02-20 06:04 | NUR ---
PT HAD SMEAR LOOSE BM MULTIPLE TIMES IN THE SHIFT. PT BECOMES VERY AGGITATED DURING BED CHANGES TRYING TO HIT STAFF AND PULL HAIR. HR 46-60 WHILE SLEEPING. CONDOM CATH REMOVED, PT IS TO AGGITATED TO REPLACE. OXYGEN MOSTLY OUT OF HIS NOSE DURING NIGHT.
--- NOTE | 2022-02-20 17:24 | NUR ---
SHIFT SUMMARY- PT AGGRESSIVE/IRRITATED WITH STAFF. PT REFUSING CARE BUT ALLOWED MEDICATIONS WITH APPLESAUCE. VSS. PT WITH CALL LIGHT IN REACH, BED ALARM ON, AND SIDE RAILS UP. PT D/C TO [facility]. PT TRANSPORTED BY AMBULANCE WITH ALL BELONGINGS IN HAND. PAPERWORK GIVEN TO TRANSPORTERS.
== END 2022-02-20 16:49 | disposition home or self-care (01) | DRG 189 ==
LOC: ER 09:46 → MEDS 12:44 → PCU 12:44 → MEDS 02-17 22:37
PROVIDERS: Emergency Medicine; Family Medicine; Hospitalist; Nurse Practitioner Acute Care; ADMIT Internal Medicine
DX: J96.01 Acute respiratory failure with hypoxia (principal); I21.A1 Myocardial infarction type 2; J44.1 Chronic obstructive pulmonary disease with (acute) exacerbation; F03.91 Unspecified dementia, unspecified severity, with behavioral disturbance; I50.32 Chronic diastolic (congestive) heart failure; Z66 Do not resuscitate; E87.2 Acidosis; J44.0 Chronic obstructive pulmonary disease with (acute) lower respiratory infection; Z20.822 Contact with and (suspected) exposure to COVID-19; D64.9 Anemia, unspecified; I11.0 Hypertensive heart disease with heart failure; H91.90 Unspecified hearing loss, unspecified ear; I48.0 Paroxysmal atrial fibrillation; E11.9 Type 2 diabetes mellitus without complications; E89.0 Postprocedural hypothyroidism; E78.5 Hyperlipidemia, unspecified; Z85.46 Personal history of malignant neoplasm of prostate; Z92.3 Personal history of irradiation; Z86.711 Personal history of pulmonary embolism; Z98.890 Other specified postprocedural states; Z79.82 Long term (current) use of aspirin; Z79.899 Other long term (current) drug therapy; Z79.01 Long term (current) use of anticoagulants
CPT/HCPCS: 0241U; 36415; 71045; 80048; 80053; 82803; 83605; 83880; 84145; 84484; 85025; 87040; 92610; 93005; 93010; 93306; 94640; 94660; 94664; 94760; 94761; 94762; 96365; 96366; 96375; 99285-25; A9270; J0456; J0696; J1940; J2930; J7050; J7512